=== PATIENT | female | born 1995 | race African-American/Black ===

== ENCOUNTER 2016-09-13 11:22 | Emergency (ER) | payer MEDICAID ==
[~2016-09-13] VITALS: Ht 160 cm; Wt 63.0 kg
[2016-09-13] MEDS ORDERED: XANAX0.25 MG ORAL (11:38)
[2016-09-13] MEDS ORDERED: DILAUDID1 MG/1 ML PO (11:38)
[2016-09-13] MEDS ORDERED: PLAQUENIL200 MG ORAL (11:38)
[2016-09-13] MEDS ORDERED: GABAPENTIN100 MG ORAL (11:38)
[2016-09-13] MEDS ORDERED: QUETIAPINE FUMA25 MG ORAL (11:38)
[2016-09-13] MEDS ORDERED: Hydromorphone 0.5mg/0.5ml inj IVP ONE (11:45)
[2016-09-13] MEDS ORDERED: Tubing IV Cassette IV ONE (12:18)
[2016-09-13 12:29] LABS: APPEARANCE,URINE SLIGHTLY CLOUDY; KETONES,URINE NEGATIVE (NEGATIVE); LEUKOCYTE ESTERASE ,URINE 1+ (NEGATIVE); NITRITE,URINE NEGATIVE (NEGATIVE); PH,URINE 6 (4.5-8.0); PROTEIN,URINE 2+ (NEGATIVE); UROBILINOGEN,URINE NORMAL MG/DL (0.0-1.0)
[2016-09-13 12:32] LABS: MEAN CORPUSCULAR HEMOGLOBIN 22.5 PG (27.0-31.0); MEAN CORPUSCULAR HGB CONC 29.9 G/DL (32.0-36.0); MEAN CORPUSCULAR VOLUME 75 FL (80-99); MEAN PLATELET VOLUME 5.6 FL (6.5-10.1); PLATELET COUNT 461 K/UL (150-450); RED CELL DISTRIBUTION WIDTH 15.7 % (11.6-14.8); WHITE BLOOD COUNT 2.7 K/UL (4.8-10.8)
[2016-09-13 12:49] LABS: ALANINE AMINOTRANSFERASE 10 U/L (3-33); ALBUMIN/GLOBULIN RATIO 1.1 (1.0-2.7); ANION GAP 15 (5-15); ASPARTATE AMINO TRANSFERASE 20 U/L (5-40); CALCIUM 9.2 mg/dL (8.6-10.2); CARBON DIOXIDE 27 mEQ/L (20-30); CHLORIDE 102 mEQ/L (98-107); CREATININE 0.6 mg/dL (0.5-0.9); GLOMERULAR FILTRATION RATE > 60 mL/min (>60); HEMOLYSIS 1; LACTATE DEHYDROGENASE 187 U/L (135-230); LIPASE 9 U/L (< 60); POTASSIUM 3.7 mEQ/L (3.4-4.9); SODIUM 144 mEQ/L (135-145); TOTAL PROTEIN 7.2 g/dL (6.6-8.7)
[2016-09-13 12:52] LABS: REFLEX LACTIC ACID YES OR NO YES
[2016-09-13 12:57] LABS: BACTERIA,URINE FEW /HPF; SQUAMOUS EPITHELIAL CELL,UR FEW /LPF (NONE/OCC); WBC,URINE 0-2 /HPF (0 - 2)
[2016-09-13 13:45] VITALS: BP 105/65
--- NOTE | 2016-09-13 13:45 | Emergency Room Report ---
History of Present Illness General Chief Complaint: Pain Source: Patient Present Illness HPI Patient presents with sickle crisis. All joints are sore. States severe. No fevers, URI sy, chest pain, NVD, dysuria. This is her usual attack. No oral meds for pain at this time. She denies . Pain is 10/10, mostly large joints, constant aching. No meds taken other than Rxs. Not feel dehydrated. Her brother just in ICU and she is upset. She also has h/o Lupus and fibromyalgia. Allergies: Coded Allergies: AZITHROMYCIN (Verified Allergy, Unknown, 09/13/16) CEFTRIAXONE (Verified Allergy, Unknown, 09/13/16) Patient History Past Medical History: see triage record Social History: Denies: smoking Social History Narrative with family Reviewed Nursing Documentation: PMH: Agreed, PSxH: Agreed Nursing Documentation-PMH Past Medical History: No History, Except For Hx Hypertension: No - LUPUS, SICKEL CELL, FIBROMYALGIA Review of Systems All Other Systems: negative except mentioned in HPI Physical Exam Vital Signs Date Time Temp Pulse Resp B/P Pulse Ox O2 Delivery O2 Flow Rate FiO2 09/13/16 11:33 99.5 130 20 116/68 100 Room Air Sp02 EP Interpretation: reviewed, normal General Appearance: well appearing, no apparent distress, GCS 15 Head: normocephalic Eyes: bilateral eye PERRL, bilateral eye conjunctivae pale ENT: moist mucus membranes Neck: supple Respiratory: lungs clear, normal breath sounds Cardiovascular #1: regular rate, rhythm Cardiovascular #2: 2+ radial (R) Gastrointestinal: normal inspection, normal bowel sounds, non tender, no mass, non-distended Musculoskeletal: back normal, gait/station normal, normal range of motion Neurologic: alert, oriented x3 - grossly normal neuro Psychiatric: no suicidal/homicidal ideation, depressed affect Skin: normal inspection, warm/dry Medical Decision Making Diagnostic Impression: Primary Impression: Sickle cell anemia Qualified Codes: D57.00 - Hb-SS disease with crisis, unspecified Additional Impressions: Alleged painful crisis AMA ER Course Patient presents with total body pain with h/o sickle cell. DDx: viral syndrome , sickle cell crisis, bone marrow failure, exacerbation of lupus amongst others. No chest symptoms. Recent trauma of loss of brother. Need labs including retic count. Treatment with IV hydration and analgesia ordered. Difficulty with start IV. I offered PO and IM analgesia which she refused. Getting ready to order PICC line. She walked out of ED and refused to speak with staff or MD. Laboratory Tests Test 09/13/16 12:00 White Blood Count 2.7 K/UL (4.8-10.8) L Red Blood Count 5.20 M/UL (4.20-5.40) Hemoglobin 11.7 G/DL (12.0-16.0) L Hematocrit 39.1 % (37.0-47.0) Mean Corpuscular Volume 75 FL (80-99) L Mean Corpuscular Hemoglobin 22.5 PG (27.0-31.0) L Mean Corpuscular Hemoglobin Concent 29.9 G/DL (32.0-36.0) L Red Cell Distribution Width 15.7 % (11.6-14.8) H Platelet Count 461 K/UL (150-450) H Mean Platelet Volume 5.6 FL (6.5-10.1) L Neutrophils (%) (Auto) % (45.0-75.0) Lymphocytes (%) (Auto) % (20.0-45.0) Monocytes (%) (Auto) % (1.0-10.0) Eosinophils (%) (Auto) % (0.0-3.0) Basophils (%) (Auto) % (0.0-2.0) Differential Total Cells Counted 100 Neutrophils % (Manual) 65 % (45-75) Lymphocytes % (Manual) 24 % (20-45) Monocytes % (Manual) 10 % (1-10) Eosinophils % (Manual) 1 % (0-3) Basophils % (Manual) 0 % (0-2) Band Neutrophils 0 % (0-8) Platelet Estimate Increased H Platelet Morphology Normal Hypochromasia 1+ Reticulocyte Count 0.9 % (0.0-2.0) Urine Color Yellow Urine Appearance Slightly cloudy Urine pH 6 (4.5-8.0) Urine Specific [place] 1.015 (1.005-1.035) Urine Protein 2+ (NEGATIVE) H Urine Glucose (UA) Negative (NEGATIVE) Urine Ketones Negative (NEGATIVE) Urine Occult Blood 1+ (NEGATIVE) H Urine Nitrite Negative (NEGATIVE) Urine Bilirubin Negative (NEGATIVE) Urine Urobilinogen Normal MG/DL (0.0-1.0) Urine Leukocyte Esterase 1+ (NEGATIVE) H Urine RBC 2-4 /HPF (0 - 2) H Urine WBC 0-2 /HPF (0 - 2) Urine Squamous Epithelial Cells Few /LPF (NONE/OCC) Urine Bacteria Few /HPF (NONE) Sodium Level 144 mEQ/L (135-145) Potassium Level 3.7 mEQ/L (3.4-4.9) Chloride Level 102 mEQ/L (98-107) Carbon Dioxide Level 27 mEQ/L (20-30) Anion Gap 15 (5-15) Blood Urea Nitrogen 6 mg/dL (7-23) L Creatinine 0.6 mg/dL (0.5-0.9) Estimate Glomerular Filtration Rate > 60 mL/min (>60) Glucose Level 94 mg/dL (74-106) Lactic Acid Level 2.50 mmol/L (0.66-2.22) H Calcium Level 9.2 mg/dL (8.6-10.2) Total Bilirubin < 0.2 mg/dL (0.0-1.2) Aspartate Amino Transferase (AST) 20 U/L (5-40) Alanine Aminotransferase (ALT) 10 U/L (3-33) Alkaline Phosphatase 95 U/L (35-104) Lactate Dehydrogenase 187 U/L (135-230) Pro-B-Type Natriuretic Peptide 8 pg/mL (0-125) Total Protein 7.2 g/dL (6.6-8.7) Albumin 3.8 g/dL (3.5-5.2) Globulin 3.4 g/dL Albumin/Globulin Ratio 1.1 (1.0-2.7) Lipase 9 U/L (< 60) Urine Opiates Screen Positive (NEGATIVE) H Urine Barbiturates Screen Negative (NEGATIVE) Phencyclidine (PCP) Screen Negative (NEGATIVE) Urine Amphetamines Screen Negative (NEGATIVE) Urine Benzodiazepines Screen Negative (NEGATIVE) Urine Cocaine Screen Negative (NEGATIVE) Urine Marijuana (THC) Screen Negative (NEGATIVE) EKG Diagnostic Results Rate: tachycardiac ST Segments: no acute changes Rhythm Strip Diag. Results EP Interpretation: yes Rhythm: no PVC's, no ectopy, other - ST Last Vital Signs Date Time Temp Pulse Resp B/P Pulse Ox O2 Delivery O2 Flow Rate FiO2 09/13/16 13:48 92 15 105/65 100 Room Air 09/13/16 11:33 99.5 Status: improved Disposition: AGAINST MEDICAL ADVICE Junior Clay M.D. Sep 13, 2016 13:45
[2016-09-13 14:16] LABS: RETICULOCYTE COUNT 0.9 % (0.0-2.0)
[2016-09-13 14:23] LABS: BAND NEUTROPHILS % (MANUAL) 0 % (0-8); BASOPHILS % (MANUAL) 0 % (0-2); EOSINOPHILS % (MANUAL) 1 % (0-3); LYMPHOCYTES % (MANUAL) 24 % (20-45); NEUTROPHILS % (MANUAL) 65 % (45-75); PLATELET ESTIMATE INCREASED; PLATELET MORPHOLOGY NORMAL; TOTAL CELLS COUNTED 100
[2016-09-13 14:25] LABS: HYPOCHROMASIA 1+
--- NOTE | 2016-09-17 15:07 | Cardiology Report ---
APPROVED REPORT EKG Measurement Heart [id number] Sinus tachycardia Possible Left atrial enlargement Nonspecific T wave abnormality Abnormal ECG
== END 2016-09-13 13:55 | disposition left against medical advice (07) ==
LOC: EMR 13:48
DX: D57.00 Hb-SS disease with crisis, unspecified (principal); M79.7 Fibromyalgia; Z87.39 Personal history of other diseases of the musculoskeletal system and connective tissue
CPT/HCPCS: 36415; 80053; 80300; 81003; 83605; 83615; 83690; 83880; 85007; 85025; 85044; 93005; 96374; 96375; 99284; J1170; J2405